=== PATIENT | female | born 1995 | race Caucasian/White ===

== ENCOUNTER 2016-04-17 11:34 | Emergency (ER) | payer OTHER, BC ==
[2016-04-17 11:51] VITALS: BMI 34.3
[2016-04-17 12:18] LABS: AUTOMATED MONOCYTE 7.7 % (3-10); AUTOMATED NEUTROPHIL 42.3 % (45-76); MPV 9.8 fL (7.4-10.4)
[2016-04-17 12:23] LABS: LEUKOCYTES/URINE NEG (NEGATIVE); NITRITE/URINE NEG (NEGATIVE); RBC/URINE 0-2 (0-5); URINE OCCULT BLOOD NEG (NEG/TRACE)
[2016-04-17 12:38] LABS: BLOOD UREA NITROGEN 14 MG/DL (7-17); CALC CORRECTED 9.4 MG/DL (8.4-10.2); CALCIUM 9.2 MG/DL (8.4-10.2); CALCULATED OSMOLALITY 274 MOs/Kg (270-290); CHLORIDE 109 mEq/L (98-107); GLUCOSE 93 MG/DL (70-99); SODIUM LEVEL 142 mEq/L (137-146); TOTAL PROTEIN 6.7 G/DL (6.3-8.2)
--- NOTE | 2016-04-17 16:26 | EDPRACDOC ---
- General Information Chief Complaint: Abdominal Pain Stated Complaint: EPIGASTRIC PAIN RADIATES TO BACK Time Seen by Provider: 04/17/16 16:20 Information Source: Patient Mode Of Arrival: Car Home Medications: Home Medications Omeprazole [Prilosec] 20 mg PO DAILY #14 cap 12/22/12 Topiramate [Topamax] 50 mg PO QAM 02/22/15 Topiramate [Topamax] 100 mg PO QHS 02/22/15 Dicyclomine HCl [Bentyl] 20 mg PO Q6H PRN #30 tab 04/17/16 Norelgestromin/Ethin.estradiol [Ortho Evra Patch] 1 patch TOP DIR 04/17/16 Ondansetron [Zofran Odt] 4 mg PO TID PRN #10 tab.rapdis 04/17/16 Ranitidine HCl 300 mg PO DAILY #30 tablet 04/17/16 Allergies/Adverse Reactions: Allergies Allergy/AdvReac Type Severity Reaction Status Date / Time acetaminophen [From Percocet] Allergy Nausea/Vomi Verified 04/17/16 11:49 ting oxycodone HCl [From Percocet] Allergy Nausea/Vomi Verified 04/17/16 11:49 ting - History of Present Illness Onset: 5 days ago HPI: PT COMPLAINS OF ACHING, SHARP, SEVERE PAIN EPIGASTRUM RADIATING OVER ENTIRE ABDOMEN AND SOMETIMES THROUGH TO HER BACK, WORSENING OVER LAST 5 DAYS, PT STATES PAIN WORSE WITH EATING, NO N/V/D, NO FEVER OR CHILLS. PT STATES HAS BEEN HAVING BLOOD IN HER STOOL AND ABD PAIN FOR SEVERAL WEEKS, IS TO HAVE COLONOSCOPY NEXT WEEK AND CT SCAN OF ABD IF COLONOSCOPY IS NEGATIVE. Pain Location: Reports: Epigastric Pain Context: Reports: After Eating Pain Severity: Severe Pain Quality: Reports: Aching, Sharp Pain Radiation: Reports: Back Last Menstrual Period: 2-3 weeks ago Adult Abdominal History: Reports: Similar Pain (dx) (NO DX OF YET) Female Abdominal History: Denies: Abdominal Surgery, UTI, Ectopic, PID, Urolithiasis, Similar Pain (dx) Modifying Factors: improves with: Food Female Associated Signs & Symptoms: Reports: Nausea. Denies: Frequency, Vaginal Bleeding, Vomiting, Hematemesis, Anorexia, Diarrhea, Melena, Dysuria, Fever, Urgency, Hematuria, Chills, Vaginal Discharge Oral Intake: Normal Urinary Output: Normal ED Past Medical History - History Reviewed Yes Nurses notes reviewed and agree except as marked - Patient Medical History Neurological History: Reports: Migraine Psychological History: Denies: Depression Surgical History: Reports: Appendectomy, Cholecystectomy - Social Medical History Smoking Status: Never smoker ETOH: None Substance Abuse: None EDM Review of Systems - Review of Systems Constitutional: negative: Chills, Fever Eyes: negative: Blurred Vision, Double Vision Ears: negative: Drainage Throat: negative: Pain Nose: negative: Congestion, Discharge Respiratory: negative: Cough, Shortness of Breath, Wheezing Cardiovascular: negative: Chest Pain, Palpitations Gastrointestinal: Nausea, Pain. negative: Diarrhea, Vomiting Genitourinary: negative: Dysuria, Frequency Neurological: negative: Dizziness, Headache, Numbness, Weakness Musculoskeletal: No Symptoms Reported Integumentary: No Symptoms Reported - Physical Exam Constitutional: Alert (Awake), No apparent distress Oriented to: Time, Person, Place Last recorded Vital Signs: Last Vital Signs Temp 98.3 F 04/17/16 16:03 Pulse 77 04/17/16 16:03 Resp 16 04/17/16 16:03 BP 135/75 04/17/16 16:03 Pulse Ox 100 04/17/16 16:03 Oxygen Pulse Oxygen Saturation 100 O2 Device Room Air Oxygen Flow Rate Fraction of Inspired Oxygen ( FIO2) - HEENT Head: Normal ( normocephalic) Eye Exam: Normal (PERRL, EOMI, Sclera white) Oropharynx: Normal (Pharynx:Moist without exudate,Gums-no swelling) Tympanic Membrane: Normal ENT EAC: Normal TMJ: Normal Nose: No Symptoms Reported (septum midline) Neck: Normal (FROM, trachea at midline) - Respiratory/Cardiovascular Respiratory: Normal - CTA (BBS clear to auscultation without adventitious sounds ) Cardiovascular: Normal (RRR without murmur, gallop or rub) - GI Auscultation: Normal (NABS) Palpation: Normal (Soft,No rebound or guarding, non distended) Tenderness: Diffuse, Mild. negative: Guarding, Rebound, Rigidity Holguin's Sign: Negative - Musculoskeletal Back: Normal (Non-Tender) Extremities: Normal (Normal tone, Pulses 2+ No cyanosis or edema, FROM) - Integumentary Skin: Normal, Warm, Dry Lymphatics: Normal (no adenopathy) - Neurologic Memory Impaired: Normal Motor Function: Normal (Normal tone, Pulses 2+ No cyanosis or edema, FROM) Cranial Nerve: Normal (CN II-X11 intact sensation, strength 5/5) Cerebellar: Normal Mood Description: Normal Perception: Normal - Differential Diagnosis Cholecystitis, Cholelithiasis, Diverticulitis, IBS, Pancreatitis, UTI - Re-evaluation Re-evaluation 1 Re-evaluation Time: 17:04 (NO CHANGE AFTER GI COCKTAIL) - Results 04/17/16 11:55 04/17/16 11:55 WBC 4.4 xk/uL (3.8-10.8) 04/17/16 11:55 RBC 4.09 xM/uL (4.20-5.40) L 04/17/16 11:55 Hgb 12.8 g/dL (12.0-16.0) 04/17/16 11:55 Hct 38.7 % (36-47) 04/17/16 11:55 MCV 95 fL (81-99) 04/17/16 11:55 MCH 31.3 pg (27-32) 04/17/16 11:55 MCHC 33.1 g/dl (33-36) 04/17/16 11:55 RDW 12.8 % (11.5-14.5) 04/17/16 11:55 Plt Count 217 xk/uL (130-400) 04/17/16 11:55 MPV 9.8 fL (7.4-10.4) 04/17/16 11:55 Neut % (Auto) 42.3 % (45-76) L 04/17/16 11:55 Lymph % (Auto) 45.0 % (17-44) H 04/17/16 11:55 [place] % (Auto) 7.7 % (3-10) 04/17/16 11:55 Eos % (Auto) 4.0 % (0-5) 04/17/16 11:55 Baso % (Auto) 1.0 % (0-2) 04/17/16 11:55 Absolute Neuts (auto) 1.85 xk/uL (1.7-8.2) 04/17/16 11:55 Absolute Lymphs (auto) 1.98 xk/uL (0.65-4.75) 04/17/16 11:55 Sodium 142 mEq/L (137-146) 04/17/16 11:55 Potassium 4.5 mEq/L (3.5-5.1) 04/17/16 11:55 Chloride 109 mEq/L (98-107) H 04/17/16 11:55 Carbon Dioxide 23 mMOL/L (22-33) 04/17/16 11:55 Anion Gap 15 mEq/L (8-16) 04/17/16 11:55 BUN 14 MG/DL (7-17) 04/17/16 11:55 Creatinine 0.90 MG/DL (0.52-1.04) 04/17/16 11:55 Estimated GFR (MDRD) > 60 mL/min (>=60) 04/17/16 11:55 Glucose 93 MG/DL (70-99) 04/17/16 11:55 Calculated Osmolality 274 MOs/Kg (270-290) 04/17/16 11:55 Calcium 9.2 MG/DL (8.4-10.2) 04/17/16 11:55 Corrected Calcium 9.4 MG/DL (8.4-10.2) 04/17/16 11:55 Total Bilirubin 0.3 MG/DL (0.2-1.3) 04/17/16 11:55 AST 17 IU/L (14-36) 04/17/16 11:55 ALT 27 IU/L (9-52) 04/17/16 11:55 Alkaline Phosphatase 57 IU/L (38-126) 04/17/16 11:55 Total Protein 6.7 G/DL (6.3-8.2) 04/17/16 11:55 Albumin 3.8 G/DL (3.5-5.0) 04/17/16 11:55 Lipase 104 U/L (23-300) 04/17/16 11:55 Urine Color Yellow 04/17/16 11:55 Urine Clarity Clear 04/17/16 11:55 Urine pH 5.0 (5.0-8.0) 04/17/16 11:55 Ur Specific [place] 1.020 (1.003-1.035) 04/17/16 11:55 Urine Protein Neg (NEG/TRACE) 04/17/16 11:55 Urine Glucose (UA) Neg (NEGATIVE) 04/17/16 11:55 Urine Ketones Neg (NEGATIVE) 04/17/16 11:55 Urine Occult Blood Neg (NEG/TRACE) 04/17/16 11:55 Urine Nitrite Neg (NEGATIVE) 04/17/16 11:55 Urine Bilirubin Neg (NEGATIVE) 04/17/16 11:55 Urine Urobilinogen <2.0 MG/DL (0-1) 04/17/16 11:55 Ur Leukocyte Esterase Neg (NEGATIVE) 04/17/16 11:55 Urine RBC 0-2 (0-5) 04/17/16 11:55 Urine WBC 2-5 (0-5) 04/17/16 11:55 Ur Epithelial Cells 2+ 04/17/16 11:55 Urine Bacteria Few (NEG/FEW) 04/17/16 11:55 Urine Mucus Mod (NEG/OCC) H 04/17/16 11:55 Urine Test Neg (NEGATIVE) 04/17/16 11:55 Lab Results 04/17/16 04/17/16 04/17/16 11:55 11:55 11:55 WBC 4.4 RBC 4.09 L Hgb 12.8 Hct 38.7 MCV 95 MCH 31.3 MCHC 33.1 RDW 12.8 Plt Count 217 MPV 9.8 Neut % (Auto) 42.3 L Lymph % (Auto) 45.0 H [place] % (Auto) 7.7 Eos % (Auto) 4.0 Baso % (Auto) 1.0 Absolute Neuts (auto) 1.85 Absolute Lymphs (auto) 1.98 Sodium Potassium Chloride Carbon Dioxide Anion Gap BUN Creatinine Estimated GFR (MDRD) Glucose Calculated Osmolality Calcium Corrected Calcium Total Bilirubin AST ALT Alkaline Phosphatase Total Protein Albumin Lipase Urine Color Yellow Urine Clarity Clear Urine pH 5.0 Ur Specific [place] 1.020 Urine Protein Neg Urine Glucose (UA) Neg Urine Ketones Neg Urine Occult Blood Neg Urine Nitrite Neg Urine Bilirubin Neg Urine Urobilinogen <2.0 Ur Leukocyte Esterase Neg Urine RBC 0-2 Urine WBC 2-5 Ur Epithelial Cells 2+ Urine Bacteria Few Urine Mucus Mod H Urine Test Neg 04/17/16 11:55 WBC RBC Hgb Hct MCV MCH MCHC RDW Plt Count MPV Neut % (Auto) Lymph % (Auto) [place] % (Auto) Eos % (Auto) Baso % (Auto) Absolute Neuts (auto) Absolute Lymphs (auto) Sodium 142 Potassium 4.5 Chloride 109 H Carbon Dioxide 23 Anion Gap 15 BUN 14 Creatinine 0.90 Estimated GFR (MDRD) > 60 Glucose 93 Calculated Osmolality 274 Calcium 9.2 Corrected Calcium 9.4 Total Bilirubin 0.3 AST 17 ALT 27 Alkaline Phosphatase 57 Total Protein 6.7 Albumin 3.8 Lipase 104 Urine Color Urine Clarity Urine pH Ur Specific [place] Urine Protein Urine Glucose (UA) Urine Ketones Urine Occult Blood Urine Nitrite Urine Bilirubin Urine Urobilinogen Ur Leukocyte Esterase Urine RBC Urine WBC Ur Epithelial Cells Urine Bacteria Urine Mucus Urine Test Decision Time to Discharge: 17:28 - Departure Disposition: Home Condition: Stable Final Diagnosis: Abdominal pain Instructions: Acute Abdominal Pain (ED) Education/Counseling Given To: Patient Education/Counseling Given Regarding: Diagnosis, Treatment, Prognosis, Follow Up Referrals: Edgardo Perez II, MD [Primary Care Provider] - One Week Prescriptions: Dicyclomine HCl [Bentyl] 20 mg PO Q6H PRN #30 tab PRN Reason: Abdominal Pain Additional Instructions: EAT A BLAND DIET ONLY, AVOID FRIED, FATTY GREASY FOODS, CONT PRILOSEC, ADD ZANTAC, FOLLOW UP WITH GI SCHEDULED, RETURN TO THE ED FOR ANY WORSENING SYMPTOMS OR CONCERNS.
[2016-04-17] MEDS ORDERED: GI COCKTAIL 30 ML DOSE PO ONE (16:28)
[2016-04-17] MEDS ORDERED: DICYCLOMINE 10 MG CAP PO ONE (17:04)
[2016-04-17] MEDS ORDERED: RANITIDINE 150 MG TAB PO ONE (17:04)
[2016-04-17 17:48] VITALS: BP 113/63; PULSE 82; TEMP 98
[2016-04-19 06:22] LABS: H. PYLORI IgA <9.0 units (0.0-8.9); H. PYLORI IgG <0.9 U/mL (0.0-0.8); H. PYLORI IgM <9.0 units (0.0-8.9)
== END 2016-04-17 17:45 | disposition home or self-care (01) ==
LOC: ED 11:34
DX: R10.9 Unspecified abdominal pain (principal)
CPT/HCPCS: 36415; 80053; 81001; 81025; 83690; 85025; 86677; 99283; J3490